=== PATIENT | female | born 1995 | race African-American/Black ===

== ENCOUNTER 2021-02-22 07:42 | Emergency (ER) | payer OTHER, SELFPAY ==
[2021-02-22 07:55] VITALS: BP 119/65; PULSE 63; RESP 16; TEMP 36.3; O2SAT 100
--- NOTE | 2021-02-22 08:00 | DI.CT_ITS ---
EXAM: CT HEAD WO CLINICAL HISTORY: Headache. TECHNIQUE: Imaging Protocol: Axial computed tomography images with coronal and sagittal reformatted images were created and reviewed COMPARISON: No exams were available for comparison FINDINGS: The ventricular system is normal in appearance. No evidence of acute intracranial hemorrhage, mass effect, or midline shift. The orbital structures are unremarkable. The temporal bone structures appear intact. Calvarium: Normal. Visualized Paranasal sinuses/Mastoids: Clear. IMPRESSION: Normal cranial CT. RADIATION DOSE DELIVERED: 806.35mGy.cm Total DLP 806.35mGy.cm Total DLP DATA REPOSITORY: All CT scans at this facility are submitted to the National Radiology Data Registry (NRDR) Dose Index Registry (DIR) with the [employer] ([employer]). RADIATION OPTIMIZATION: All CT scans at this facility use at least one of these dose optimization te chniques: automated exposure control; mA and/or kV adjustment per patient size (includes targeted exa ms where dose is matched to clinical indication); or iterative reconstruction.
--- NOTE | 2021-02-22 08:17 | W.ED.GENAD ---
Discharge Plan Disposition Patient Disposition: HOME Condition: Improving Discharge Details Clinical Impression: Headache, Anemia Primary Care Provider: None,None ED Provider: Charisma Serrano Home Meds and New Rx's Prescriptions: No Action No Known Home Meds RF: 0 Discharge Instructions Instructions: Anemia (ED), General Headache (ED) Additional Instructions: Follow up with primary care provider in 3-5 days. Return to ED sooner if any worsening pain not relieved by medications or concerns. Increase oral fluids. Please take Tylenol or Ibuprofen with food every 4-6 hours as needed for pain and swelling. Consider taking a iron supplement which you can get [id number]. You are placed on care management list to help establish primary care provider. Stand Alone Forms: Work Release Referrals: Tiffanie Liu MD [ [facility] STAFF PHYSICIAN] - 1 week (Headaches) Discharge Data Discharge Date/Time-TO BE ENTERED AT DEPARTURE: 02/22/21 10:14 Medical Decision Making 26-year-old female presents the ER with chief complaint of headache which has been ongoing for months. She reports worsening over the last few days. She describes a frontal stinging, throbbing type headache which radiates into the occipital head. Right now she reports 9 out of 10 pain. She reports that when the pain gets really bad that she does have some blurry vision. She denies any neck pain no recent trauma, no nausea vomiting diarrhea. She denies any fever or chills. She denies any ringing in her ears. She does endorse some sensitivity to light. She has been taking ibuprofen at home with little to no relief. Last normal menstrual period February 14 she is not on any form of control. She is a non-smoker denies any drugs or alcohol. Only past medical history is anemia. Due to the length of headaches and report of no previous evaluation we will do some baseline labs, urine , CT head without contrast. Visual acuity was done by staff nuclear medicine technologist and is Corrected OU 20/25 OD20/20 Both 20/20. ad radiology report Imaging protocol: Computed tomography of the head without contrast. COMPARISON: No relevant prior studies available. FINDINGS: Brain: Normal. No hemorrhage. Unremarkable white matter. No mass effect. Cerebral ventricles: No ventriculomegaly. Bones/joints: Unremarkable. No acute fracture. Paranasal sinuses: Visualized sinuses are unremarkable. No fluid levels. Mastoid air cells: Visualized mastoid air cells are well aerated. Soft tissues: Unremarkable. IMPRESSION: No acute intracranial abnormality. Thank you for allowing us to participate in the care of your patient. Dictated and Authenticated by: Yvrose Martinez MD CBC shows anemia, hemoglobin 8.3, hematocrit 28.6 MCH 26 RDW 17.4 platelets are 429. CMP largely within normal limits. Urinalysis shows trace leukocytes, 20-50 WBCs urine sample is contaminated, culture not indicated at this time. Many epithelial cells. Patient has no complaints of dysuria or symptoms of UTI. Patient does have a history of anemia. As noted above in the radiology report no acute intracranial abnormality. There is what I presume is a calcification noted in the frontal lobe which was not mentioned in the report. I will refer patient to neurology regarding her headaches and place patient on care management list for establishment with PCP regarding her anemia. I did discuss CT and lab results with the patient who verbalizes understanding. HPI General Mode of arrival: ambulatory. Date/Time Provider Initiated Documentation: 02/22/21 07:57. Limitations to Documentation: no limitations. Information obtained by: patient. HPI Narrative: 26-year-old female presents the ER with chief complaint of headache which has been ongoing for months. She reports worsening over the last few days. She describes a frontal stinging, throbbing type headache which radiates into the occipital head. Right now she reports 9 out of 10 pain. She reports that when the pain gets really bad that she does have some blurry vision. She denies any neck pain no recent trauma, no nausea vomiting diarrhea. She denies any fever or chills. She denies any ringing in her ears. She does endorse some sensitivity to light. She has been taking ibuprofen at home with little to no relief. Last normal menstrual period February 14 she is not on any form of control. She is a non-smoker denies any drugs or alcohol. Only past medical history is anemia. Related Data Home Medications Medication Instructions Recorded Confirmed Unknown [No Known Home Meds] 02/22/21 02/22/21 Allergies Allergy/AdvReac Type Severity Reaction Status Date / Time No Known Allergies Allergy Unverified 02/22/21 07:59 General Stated Complaint: Headache BOOGIE: 3 Review of Systems Narrative: Constitutional: Negative for weight loss, alert and oriented, well groomed, normal body habitus, appears comfortable. HEENT: Denies trauma, nasal discharge, sore throat, trouble swallowing. Reports frontal headache which radiates into the back describes as stinging and throbbing. Reports some blurry vision when pain gets really bad. Chest: Denies chest pain, palpitations, irregular rhythm, hypertension. Respiratory: Denies Shortness of breath, cough, hemoptysis. GI: Denies abdominal pain, nausea, vomiting, diarrhea, constipation. : Denies dysuria, hematuria, flank pain, rectal bleeding. Neuro: Denies dizziness, weakness, syncope, or facial numbness. Hematologic: Denies easy bruising, intolerance to heat or cold, hair loss. ON LICENSE OF [facility] Social History Smoking/Tobacco Use Status: Never Smoking risk assessment performed?: Yes Alcohol Intake: never Substance use type: does not use Exam Narrative Exam Narrative: Constitutional: Alert and oriented x3. Appears stated age. Well-nourished body habitus. Head: Normocephalic, no signs of trauma. Eyes: Pupils PERRLA, Red reflex noted, EOM's intact, no nystagmus. Eyelids symmetrical without lesions, discharge, or swelling. ENT: Bilateral TM's WNL, External ear normal to inspection, no mastoid TTP, swelling, or erythema, Nasal turbinates WNL, no nasal discharge. Normal dentition, Posterior pharynx WNL, no exudate. Chest: RRR, Normal S1, S2, distal pulses intact. Resp: Lungs clear to auscultation bilaterally, no wheezes, rales, or rhonchi. Musculoskeletal: Normal gait, 5/5 strength to all four extremities. Skin: No suspicious rashes or lesions. Capillary refill less than 2 sec. Neurologic: Cranial nerves II-XII intact. Alert and oriented x 3. No facial droop, chip person equal and 5+ bilaterally. Hematologic/Lymphatic: No ecchymosis, no lymphadenopathy. Course Vital Signs Vital signs: Vital Signs Temperature 36.3 C L 02/22/21 07:55 Pulse 63 02/22/21 07:55 Respiratory Rate 16 02/22/21 07:55 Blood Pressure 119/65 02/22/21 07:55 Pulse Oximetry 100 02/22/21 07:55 Temperature 36.3 C L 02/22/21 07:55 Temperature Source Skin 02/22/21 07:55 Pulse 63 02/22/21 07:55 Respiratory Rate 16 02/22/21 07:55 Respiratory Effort Non-Labored 02/22/21 07:55 Blood Pressure 119/65 02/22/21 07:55 Blood Pressure Position Sitting 02/22/21 07:55 Pulse Oximetry 100 02/22/21 07:55 Oxygen Delivery Method Room Air 02/22/21 07:55 Oxygen Flow Rate 0 02/22/21 07:55 Pain Level 9 02/22/21 07:59
[2021-02-22] MEDS: Normal Saline 1,000 ML 1000 ML IV (08:25)
[2021-02-22 08:35] LABS: Abs Immature Grans 0.02 10^3/uL (0.0-0.06); Absolute Basophil Count 0.04 10^3/uL (0.0-0.2); Absolute Eosinophil Count 0.05 10^3/uL (0.0-0.7); Absolute Lymphocyte Count 2.35 10^3/uL (1.2-3.4); Absolute Monocyte Count 0.48 10^3/uL (0.1-0.8); Absolute Neutrophil Count 3.69 10^3/uL (1.2-6.7); Basophils % 0.6; Eosinophils % 0.8; HCT 28.6 % (36.0-46.0); HGB 8.3 g/dL (11.2-15.7); Immature Grans % 0.3; Lymphocytes % 35.4; MCH 23.6 pg (27.0-33.0); MCV 81.5 fL (80-95); MPV 8.9 fL (8.0-11.0); Monocytes % 7.2; Neutrophils % 55.7; Nucleated RBC 0 %; Platelet Count 429 10^3/uL (130-400); RBC 3.51 10^6/uL (3.93-5.22); RDW 17.4 % (11.7-14.6); RDW-SD 51.1 fL; WBC 6.63 10^3/uL (4.4-10.8)
[2021-02-22] MEDS: Ondansetron 4 MG/2 ML VIAL IVP (08:35)
[2021-02-22 08:41] LABS: Bilirubin Negative (Negative); Blood Negative (Negative); Clarity Sl Cloudy (Clear); Glucose Negative (Negative); Ketones Negative (Negative); Leukocyte Esterase Trace (Negative); Nitrite Negative (Negative); Specific Gravity >= 1.030 (1.005-1.025); pH 5.5 (5-8)
[2021-02-22] MEDS: diphenhydrAMINE 50 MG/ML VIAL 25 MG IVP (08:45)
[2021-02-22 08:46] LABS: ALT 24 U/L (14-59); AST 13 U/L (15-37); Albumin 3.6 g/dL (3.4-5.0); Alkaline Phosphatase 71 U/L (46-116); Anion Gap 8.2 mmol/L (3-11); BUN 11 mg/dL (7-18); Bilirubin, Total 0.3 mg/dL (0.2-1.0); CO2 27.8 mmol/L (21.0-32.0); CREATININE 0.6 mg/dL (0.55-1.02); Calcium 8.7 mg/dL (8.5-10.1); Chloride 104 mmol/L (98-107); Glucose 99 mg/dL (74-106); Potassium 3.7 mmol/L (3.5-5.1); Sodium 140 mmol/L (136-145); Total Protein 7.9 g/dL (6.4-8.2)
[2021-02-22 08:53] LABS: Bacteria Moderate HPF (Negative); C & S Indicated? No/Sq. Contamination; Casts Negative LPF (Negative); Crystals Negative HPF (Negative); Epithelial Cells Many HPF (Negative); Mucus Trace (Negative); WBC 20-50 HPF (0-5)
--- NOTE | 2021-02-22 09:21 | DI.VRAD_ITS ---
PROCEDURE INFORMATION: Exam: CT Head Without Contrast Exam date and time: 02/22/2021 8:11 AM Age: 26 years old Clinical indication: Pain; Headache TECHNIQUE: Imaging protocol: Computed tomography of the head without contrast. COMPARISON: No relevant prior studies available. FINDINGS: Brain: Normal. No hemorrhage. Unremarkable white matter. No mass effect. Cerebral ventricles: No ventriculomegaly. Bones/joints: Unremarkable. No acute fracture. Paranasal sinuses: Visualized sinuses are unremarkable. No fluid levels. Mastoid air cells: Visualized mastoid air cells are well aerated. Soft tissues: Unremarkable. IMPRESSION: No acute intracranial abnormality. Dictated and Authenticated by: Yvrose Martinez MD. Ordering:ULISES Zafar MD
--- NOTE | 2021-02-22 09:42 | NUR.NOTE ---
Nursing Note: Referral faxed to [facility] for headache follow up within 1 - 2 wks. Referral given to Care Management for anemia/establish care with PCP within 2 weeks. Elma Field
[2021-02-22] MEDS: Ketorolac 15 MG/ML VIAL IVP (09:43)
[2021-02-22 09:54] VITALS: BP 98/47; PULSE 57; RESP 16; TEMP 36.3; O2SAT 100
[2021-02-22 10:12] VITALS: BP 98/47; PULSE 57; RESP 16; TEMP 36.3; O2SAT 100
== END 2021-02-22 10:14 | disposition home or self-care (01) ==
PROVIDERS: Emergency Provider Registered Nurse Emergency
DX: R51.9 Headache, unspecified (principal); D64.9 Anemia, unspecified
CPT/HCPCS: 80053; 81025; 96361; 96374; 96375; 99284; 70450; 81003; 81015; 85025; J1200; J1885; J2405

== ENCOUNTER 2021-03-17 07:07 | Emergency (ER) | payer OTHER, SELFPAY ==
[2021-03-17] VITALS (39 sets, daily range): BP systolic 104–135; BP diastolic 46–82; PULSE 48–84; RESP 12–23; TEMP 36.6; O2SAT 98–100
--- NOTE | 2021-03-17 07:00 | RT.EKG_ITS ---
APPROVED REPORT Exam: Resting ECG Reason for Exam: anxiety Patient Location: E HR:58 bpm ECG Measurements Heart Rate 58 AXIS PA 135 P 29 QRSd 88 QRS 27 QT 401 T 7 QTc 395 Conclusion Slow sinus arrhythmia...V-rate 50- 77, mean< 60 Nonspecific T abnormalities, anterior leads...T <-0.10mV, V2-V4 Physician: Rate 58, sinus rhythm, intervals unremarkable, inverted T waves in V1 and V2, and lead III. No STEMI . No prior EKG for comparison.
--- NOTE | 2021-03-17 07:19 | ED.GENADUL_ITS ---
Discharge Plan Disposition Patient Disposition: HOME Condition: Stable Discharge Details Clinical Impression: Chest pain, Anemia Primary Care Provider: None,None ED Provider: Sarai Ruggiero Home Meds and New Rx's Prescriptions: Continued acetaminophen [Tylenol Extra Strength] 500 mg tablet 500 mg PO Q6H PRNRF: 0 ibuprofen 200 mg tablet 400 mg PO Q6H PRNRF: 0 prochlorperazine maleate 5 mg tablet See Rx Instructions PO TID PRN (Reason: headaches ) Qty: 30 RF: 3 Discharge Instructions Instructions: Chest Pain (ED), Anemia (ED), Anxiety (ED) Additional Instructions: Please return immediately to the emergency department if you develop any new or worsening symptoms, if your condition does not improve as expected, or if you become otherwise concerned. It is extremely important that you call soon as possible to make an appointment to be seen in follow-up for this visit by your primary care doctor. Medical Decision Making <Nick Quiñonez, - Last Filed: 03/17/21 07:26> This is a 26-year-old -Citizen Of [place] female with a past medical history of mild anemia, and panic attacks who presents today for evaluation of anxiety. Patient states that she has a long history of panic attacks, and this morning she feels she is having a mild panic attack. Patient states that yesterday while she was driving to work she had a panic-like sensation, chest pressure and tightness, some mild shortness of breath. She has been trying to work through it but feels that the symptoms have been becoming too notable to control on her own. She states that 4 days ago she did break-up with her significant other. She has not seen her family in [place] for quite some time. She denies any IV or illicit drug use, history of blood clots, long trips, surgeries, or procedures. She does not have medications to help manage this in general. Of note she does have a history of headaches for which she was seen by Dr. Deng just last month, and her CT scan of her head was negative at that time. Physical exam is unremarkable and very reassuring. Vital signs are stable. She has no family history of young cardiac disease. Differential is highest for anxiety, however I feel there is also component of mild depression. She has no homicidal or suicidal ideations. Did ask her if she would like to speak with a counselor, and she was very agreeable to this. She does not look overly panicked at this time, I do feel that a very small dose of Ativan may be helpful, but she does not need large dose anxiolytics at this time. With the patient's chest pain shortness of breath though I do feel that further invest igation for potential blood clot and cardiac abnormalities is warranted. We will do a single troponin, get an EKG, get a D-dimer, gently rehydrate monitor closely and reassess. We will contact mental health to visit the patient to help set up outpatient management/counseling. EKG 7: 18 Rate 58, sinus rhythm, intervals unremarkable, inverted T waves in V1 and V2, and lead III. No STEMI. No prior EKG for comparison. <Sarai Ruggiero MD - Last Filed: 03/17/21 11:18> Parul Renee is a 26-year-old woman with history of anemia signed out to me at time of shift change by Dr. Quiñonez with D-dimer, imaging, reassessment pending. D-dimer resulted as negative, chest x-ray obtained and negative. Patient reports to me that she had episode of anxiety and chest tightness while driving to work both yesterday morning and this morning. Denies exertional symptoms. Patient reports that she feels significantly improved at this time, has no chest tightness/chest pain or other symptoms currently. Plan for repeat troponin, repeat EKG. Patient states that she does not have a PE in this area, will place patient on care management with established PCP. Patient has not received the Covid vaccination. Pt offered [employer] vaccine, which she declines at this time. Repeat troponin negative. Repeat EKG unchanged from initial. Patient denies any current symptoms, states that she feels much better than she did upon arrival. Plan for outpatient follow-up with PCP, care management to assist. I had a lengthy discussion with Patient regarding return to emergency department precautions, home care, and importance of outpatient follow-up. Pt verbalizes understanding of the plan and is amenable. Patient discharged to home with clear plan for outpatient follow-up. All questions were answered. Disposition decision was made weighing the risks and benefits of hospitalization versus outpatient treatment, the risk for further decompensation, and the patient's wishes. Medical Records Medical records reviewed: Yes I reviewed the patient's medical records. Imaging Data Radiologic Study: Attestation: I personally reviewed and interpreted this imaging study as follows: Radiologist's impression: EXAM: XR CHEST 2V PA LATERAL CLINICAL HISTORY: chest pain. TECHNIQUE: 2D digital imaging was performed. COMPARISON: No exams were available for comparison FINDINGS: Heart size is normal. The mediastinum is not widened. Lungs are clear. No infiltrates nor pleural effusions. IMPRESSION: No acute pulmonary findings. Lab Data Lab results reviewed: Yes I reviewed the patient's lab results. Labs: Laboratory Tests Range/Units 03/17/21 03/17/21 03/17/21 07:30 07:30 07:30 WBC (4.4-10.8) 10^3/uL 6.67 RBC (3.93-5.22) 10^6/uL 3.57 L Hgb (11.2-15.7) g/dL 8.4 L Hct (36.0-46.0) % 28.9 L MCV (80-95) fL 81.0 MCH (27.0-33.0) pg 23.5 L MCHC (32.0-36.0) % 29.1 L RDW (11.7-14.6) % 17.4 H Plt Count (130-400) 10^3/uL 430 H MPV (8.0-11.0) fL 9.0 Immature Gran % 0.1 Neutrophils % 53.3 Lymphocytes % 37.0 Monocytes % 8.5 Eosinophils % 0.7 Basophils % 0.4 Nucleated RBC % % 0 Absolute Neutrophils (1.2-6.7) 10^3/uL 3.54 Absolute Lymphocytes (1.2-3.4) 10^3/uL 2.47 Absolute Monocytes (0.1-0.8) 10^3/uL 0.57 Absolute Eosinophils (0.0-0.7) 10^3/uL 0.05 Absolute Basophils (0.0-0.2) 10^3/uL 0.03 D-Dimer (<500) ng/mlFEU 206 Sodium (136-145) mmol/L 140 Potassium (3.5-5.1) mmol/L 3.8 Chloride (98-107) mmol/L 103 Carbon Dioxide (21.0-32.0) mmol/L 30.4 Anion Gap (3-11) mmol/L 6.6 BUN (7-18) mg/dL 8 Creatinine (0.55-1.02) mg/dL 0.7 Estimated GFR/1.73 m2 (mL/min/1.73m2) >= 60.00 Glucose (74-106) mg/dL 110 H Calcium (8.5-10.1) mg/dL 8.9 Total Bilirubin (0.2-1.0) mg/dL 0.3 AST (15-37) U/L 21 ALT (14-59) U/L 25 Alkaline Phosphatase (46-116) U/L 75 Troponin I (<0.06) ng/mL < 0.05 Total Protein (6.4-8.2) g/dL 8.0 Albumin (3.4-5.0) g/dL 3.5 Urine Opiates Screen (Negative) Urine Methadone Screen (Negative) Ur Barbiturates Screen (Negative) Ur Tricyclics Screen (Negative) Ur Amphetamines Screen (Negative) U Benzodiazepines Scrn (Negative) Urine Cocaine Screen (Negative) Ur THC Screen (Negative) Range/Units 03/17/21 03/17/21 07:47 10:16 WBC (4.4-10.8) 10^3/uL RBC (3.93-5.22) 10^6/uL Hgb (11.2-15.7) g/dL Hct (36.0-46.0) % MCV (80-95) fL MCH (27.0-33.0) pg MCHC (32.0-36.0) % RDW (11.7-14.6) % Plt Count (130-400) 10^3/uL MPV (8.0-11.0) fL Immature Gran % Neutrophils % Lymphocytes % Monocytes % Eosinophils % Basophils % Nucleated RBC % % Absolute Neutrophils (1.2-6.7) 10^3/uL Absolute Lymphocytes (1.2-3.4) 10^3/uL Absolute Monocytes (0.1-0.8) 10^3/uL Absolute Eosinophils (0.0-0.7) 10^3/uL Absolute Basophils (0.0-0.2) 10^3/uL D-Dimer (<500) ng/mlFEU Sodium (136-145) mmol/L Potassium (3.5-5.1) mmol/L Chloride (98-107) mmol/L Carbon Dioxide (21.0-32.0) mmol/L Anion Gap (3-11) mmol/L BUN (7-18) mg/dL Creatinine (0.55-1.02) mg/dL Estimated GFR/1.73 m2 (mL/min/1.73m2) Glucose (74-106) mg/dL Calcium (8.5-10.1) mg/dL Total Bilirubin (0.2-1.0) mg/dL AST (15-37) U/L ALT (14-59) U/L Alkaline Phosphatase (46-116) U/L Troponin I (<0.06) ng/mL < 0.05 Total Protein (6.4-8.2) g/dL Albumin (3.4-5.0) g/dL Urine Opiates Screen (Negative) Negative Urine Methadone Screen (Negative) Negative Ur Barbiturates Screen (Negative) Negative Ur Tricyclics Screen (Negative) Negative Ur Amphetamines Screen (Negative) Negative U Benzodiazepines Scrn (Negative) Negative Urine Cocaine Screen (Negative) Negative Ur THC Screen (Negative) Negative ECG Data Attestation: I personally reviewed and interpreted this ECG (s) as follows: Interpretation: Repeat EKG shows sinus bradycardia at 51, normal axis, T wave inversions V1 and V2, lead III as seen on prior earlier today, no STEMI, no major change from prior, nondiagnostic EKG HPI <Nick Quiñonez DO - Last Filed: 03/17/21 07:26> General Date/Time Provider Initiated Documentation: 03/17/21 07:09 . HPI Narrative: This is a 26-year-old -Citizen Of [place] female with a past medical history of mild anemia, and panic attacks who presents today for evaluation of anxiety. Patient states that she has a long history of panic attacks, and this morning she feels she is having a mild panic attack. Patient states that yesterday while she was driving to work she had a panic-like sensation, chest pressure and tightness, some mild shortness of breath. She has been trying to work through it but feels that the symptoms have been becoming too notable to control on her own. She states that 4 days ago she did break-up with her significant other. She has not seen her family in [place] for quite some time. She denies any IV or illicit drug use, history of blood clots, long trips, surgeries, or procedures. She does not have medications to help manage this in general. Of note she does have a history of headaches for which she was seen by Dr. Deng just last month, and her CT scan of her head was negative at that time. Related Data Home Medications Medication Instructions Recorded Confirmed acetaminophen 500 mg tablet 500 mg PO Q6H PRN 03/05/21 03/17/21 ibuprofen 200 mg tablet 400 mg PO Q6H PRN tab 03/05/21 03/17/21 prochlorperazine maleate 5 mg See Rx Instructions PO TID PRN #30 03/05/21 03/17/21 tablet tab Previous Rx's Medication Instructions Recorded prochlorperazine maleate 5 mg See Rx Instructions PO TID PRN #30 03/05/21 tablet tab Allergies Allergy/AdvReac Type Severity Reaction Status Date / Time No Known Allergies Allergy Unverified 03/17/21 07:23 General BOOGIE: 3 Review of Systems <Nick Quiñonez DO - Last Filed: 03/17/21 07:26> All systems reviewed & are unremarkable except as noted in HPI and below PFSH <Nick Quiñonez DO - Last Filed: 03/17/21 07:26> Medical History Anemia Social History Smoking/Tobacco Use Status: Never Smoking risk assessment performed?: Yes Alcohol Intake: never Substance use type: does not use Household members: spouse Housing: apartment What is your relationship status?: Panel score (0-1 are the most socially isolated patients): 1 What type of physical activity do you participate in: regular exercise Seatbelt use: always Do you feel safe at home: Yes Do you feel safe in your relationship?: Yes Exam <Nick Quiñonez DO - Last Filed: 03/17/21 07:26> Narrative Exam Narrative: 1.Const: Well-nourished, Well-developed, appearing stated age 2.Eyes: PERRL, no conjunctival injection, and symmetrical lids. 3.ENT: Atraumatic external nose and ears. Moist MM. Neck: Symmetric, trachea midline, No thyromegaly. 4.CVS: +S1/S2, No murmurs or gallops. Peripheral pulses 2+ and equal in all extremities. Brisk capillary refill in all extremities. 5.RESP: Unlabored respiratory effort. Clear to auscultation bilaterally. No wheezes rales or rhonchi 6.GI: Soft, Nontender/Nondistended, No hepatosplenomegaly. No guarding or rebound. 7.MSK: Normocephalic/Atraumatic, Extremities w/o deformity or ttp No cyanosis or clubbing, Normal movement of all extremities. Trace pitting edema in the lower extremities bilaterally. No unilateral swelling. No calf tenderness. 8.Skin: Warm, Dry. No rashes or lesions. 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 Sensation grossly intact, no focal neurologic deficits. 10.Psych: (AAO) x3. Appropriate mood and affect Sign Out <Nick Quiñonez DO - Last Filed: 03/17/21 07:26> Sign Out Data: Sign Out Comment: Patient reports anxiety and panic-like sensation over the last 2 days. Could do cardiac work-up and D-dimer small doses 0.5 mg Ativan. Determine imaging after dimer returns. Last updated by Nick Quiñonez DO at 03/17/21 07:27
[2021-03-17] MEDS: Normal Saline 1,000 ML 1000 ML IV (07:37)
--- NOTE | 2021-03-17 07:39 | NUR.NOTE ---
Nursing Note: Referral to establish care with a PCP in 1 to 2 weeks for anxiety given to Care Management. Elma Field
[2021-03-17 07:42] LABS: Abs Immature Grans 0.01 10^3/uL (0.0-0.06); Absolute Basophil Count 0.03 10^3/uL (0.0-0.2); Absolute Eosinophil Count 0.05 10^3/uL (0.0-0.7); Absolute Lymphocyte Count 2.47 10^3/uL (1.2-3.4); Absolute Monocyte Count 0.57 10^3/uL (0.1-0.8); Absolute Neutrophil Count 3.54 10^3/uL (1.2-6.7); Basophils % 0.4; Eosinophils % 0.7; HCT 28.9 % (36.0-46.0); HGB 8.4 g/dL (11.2-15.7); Immature Grans % 0.1; MCH 23.5 pg (27.0-33.0); MCHC 29.1 % (32.0-36.0); Monocytes % 8.5; Neutrophils % 53.3; Nucleated RBC 0 %; Platelet Count 430 10^3/uL (130-400); RBC 3.57 10^6/uL (3.93-5.22); RDW 17.4 % (11.7-14.6); RDW-SD 51.5 fL; WBC 6.67 10^3/uL (4.4-10.8)
[2021-03-17] MEDS: LORazepam 2 MG/ML VIAL 0.5 MG IVP (07:50)
--- NOTE | 2021-03-17 07:56 | NUR.NOTE ---
Nursing Note: DOYLE Slade is speaking with the patient. Elma Field
[2021-03-17 07:59] LABS: ALT 25 U/L (14-59); AST 21 U/L (15-37); Albumin 3.5 g/dL (3.4-5.0); Alkaline Phosphatase 75 U/L (46-116); Anion Gap 6.6 mmol/L (3-11); BUN 8 mg/dL (7-18); Bilirubin, Total 0.3 mg/dL (0.2-1.0); CO2 30.4 mmol/L (21.0-32.0); CREATININE 0.7 mg/dL (0.55-1.02); Calcium 8.9 mg/dL (8.5-10.1); Chloride 103 mmol/L (98-107); Glucose 110 mg/dL (74-106); Potassium 3.8 mmol/L (3.5-5.1); Sodium 140 mmol/L (136-145)
[2021-03-17 08:01] LABS: Troponin I < 0.05 ng/mL (<0.06)
[2021-03-17 08:14] LABS: *AMPHETAMINES SCREEN URINE Negative (Negative); *BARBITURATES SCREEN URINE Negative (Negative); *BENZODIAZEPINES SCREEN URINE Negative (Negative); Cannabinoids THC Negative (Negative); Cocaine Screen,Urine Negative (Negative); METHADONE URINE SCREEN Negative (Negative); OPIATES URINE SCREEN Negative (Negative)
[2021-03-17 08:18] LABS: Tricyclic Antidepressants Negative (Negative)
[2021-03-17 09:00] LABS: D-Dimer 206 ng/mlFEU (<500)
--- NOTE | 2021-03-17 09:00 | DI.RAD_ITS ---
Exam(s) XR CHEST 2V PA LATERAL EXAM: XR CHEST 2V PA LATERAL CLINICAL HISTORY: chest pain. TECHNIQUE: 2D digital imaging was performed. COMPARISON: No exams were available for comparison FINDINGS: Heart size is normal. The mediastinum is not widened. Lungs are clear. No infiltrates nor pleural effusions. IMPRESSION: No acute pulmonary findings. DATA REPOSITORY: RADIATION DOSE DELIVERED:
--- NOTE | 2021-03-17 10:00 | RT.EKG_ITS ---
APPROVED REPORT Exam: Resting ECG Reason for Exam: chest pain Patient Location: E HR:51 bpm ECG Measurements Heart Rate 51 AXIS ME 141 P 14 QRSd 88 QRS 24 QT 414 T 8 QTc 382 Conclusion Sinus bradycardia...rate< 60 sinus bradycardia at 51, normal axis, T wave inversions V1 and V2, lead III as seen on prior earlier today, no STEMI, no major change from prior, nondiagnostic EKG
[2021-03-17 10:50] LABS: Troponin I < 0.05 ng/mL (<0.06)
--- NOTE | 2021-03-18 11:17 | PDOC.ERCMPRO ---
Care Management Progress Note CM faxed referral to [facility] for PCP attachment per tele-doc protocol assignment, as requested.
== END 2021-03-17 11:27 | disposition home or self-care (01) ==
PROVIDERS: Student in an Organized Health Care Education/Training Program; Emergency Provider Student in an Organized Health Care Education/Training Program
DX: R07.9 Chest pain, unspecified (principal); D64.9 Anemia, unspecified; F41.9 Anxiety disorder, unspecified
CPT/HCPCS: 80053; 80307; 93005; 96361; 96374; 99284; 71046; 84484; 85025; 85379; 93010; 99283; J2060

== ENCOUNTER 2021-03-31 15:32 | Emergency (ER) | payer OTHER, SELFPAY ==
--- NOTE | 2021-03-31 15:30 | DI.US_ITS ---
Exam(s) US LOWER EXTREMITY VENOUS RT EXAM: US LOWER EXTREMITY VENOUS RT CLINICAL HISTORY: RLE pain TECHNIQUE: Grayscale, color, and doppler imaging of the deep venous system of the right lower extrem ity was performed. COMPARISON: No exams were available for comparison FINDINGS: There is no evidence of intraluminal thrombus and there is normal compression and augmentation demons trated within the common femoral vein, femoral vein, and popliteal vein. In the ipsilateral calf the interrogated veins also exhibit normal compression/ augmentation properti es. The ipsilateral saphenofemoral junction is patent. IMPRESSION: 1. No evidence of DVT in the right lower extremity. 2. DATA REPOSITORY:
[2021-03-31 15:36] VITALS: BP 114/64; RESP 18; TEMP 36.5; O2SAT 100
--- NOTE | 2021-03-31 15:48 | W.ED.GENAD ---
Discharge Plan Disposition Patient Disposition: HOME Condition: Stable Discharge Details Clinical Impression: Strain of right calf muscle, Right foot strain Primary Care Provider: None,None ED Provider: Flo Vance Home Meds and New Rx's Prescriptions: Continued acetaminophen [Tylenol Extra Strength] 500 mg tablet 500 mg PO Q6H PRNRF: 0 ibuprofen 200 mg tablet 400 mg PO Q6H PRNRF: 0 prochlorperazine maleate 5 mg tablet See Rx Instructions PO TID PRN (Reason: headaches ) Qty: 30 RF: 3 Discharge Instructions Instructions: Muscle Strain (ED) Additional Instructions: Home to rest today. Wear walking ankle shoe for 2 to 7 days as needed. Then transition to a hard soled shoe such as a dance go clogs. Apply ice to area to reduce pain and swelling. Elevate above the level of the heart to reduce pain and swelling. Your ultrasound today did not show evidence of mass or blood clot. Medical Decision Making 26-year-old female who works as an L[employer]. Presents with 2 days of right medial calf and foot pain that seems to be worse at the end of the day. Trace swelling. There is approximately half centimeter difference in circumference right greater than left on my exam and tenderness along the right medial gastrocnemius, soleus, distal right lower extremity. No cords or masses appreciated. No rash. Differential diagnosis includes muscular strain versus DVT. Patient referred for right lower extremity ultrasound which does not reveal any acute findings. Consistent with muscular strain. Patient worried for some discomfort on the lateral foot, and discussed with her immobilization using ankle walker and transitioning to a hard soled clog-like shoe. She is stable for discharge with outpatient management at this time and understands indications to seek reevaluation. HPI General Mode of arrival: ambulatory. Date/Time Provider Initiated Documentation: 03/31/21 15:33. Limitations to Documentation: no limitations. Information obtained by: patient. History of Present Illness 26 year old F presents to the emergency department with the chief complaint of Right calf pain for 2 days, described as moderate, Quality is described as dull and constant, and is localized to the right and lower extremity. Patient started experiencing this day(s) and it has been intermittent. No relieving factors improve symptom(s), Movement worsens symptoms . Patient notes denies fever/chills and rash. Patient did receive the following treatments prior to arrival, none Related Data Home Medications Medication Instructions Recorded Confirmed acetaminophen 500 mg tablet 500 mg PO Q6H PRN 03/05/21 03/31/21 ibuprofen 200 mg tablet 400 mg PO Q6H PRN tab 03/05/21 03/31/21 prochlorperazine maleate 5 mg See Rx Instructions PO TID PRN #30 03/05/21 03/31/21 tablet tab Previous Rx's Medication Instructions Recorded prochlorperazine maleate 5 mg See Rx Instructions PO TID PRN #30 03/05/21 tablet tab Allergies Allergy/AdvReac Type Severity Reaction Status Date / Time No Known Allergies Allergy Unverified 03/31/21 15:40 General Stated Complaint: Vascular BOOGIE: 4 Review of Systems Narrative: Not . No chest pain or shortness of breath. No direct fall or injury. No rash. 6 systems reviewed and otherwise negative [facility] Medical History Anemia Social History Smoking/Tobacco Use Status: Never Smoking risk assessment performed?: Yes Alcohol Intake: never Substance use type: does not use Household members: spouse Housing: apartment What is your relationship status?: Panel score (0-1 are the most socially isolated patients): 1 What type of physical activity do you participate in: regular exercise Seatbelt use: always Do you feel safe at home: Yes Do you feel safe in your relationship?: Yes Exam Narrative Exam Narrative: GEN: awake, alert, oriented 3. Pleasant, well groomed, interactive. HEAD: Normocephalic, atraumatic ENT: Mucous membranes moist, External ear exam unremarkable EYES: PERRL, EOMI NECK: Full ROM, no ERIC, no menigismus CHEST/RESP: No respiratory distress EXT: Full ROM, trace pedal edema bilaterally although quite subtle. Palpable DP bilaterally. Right medial gastroc and soleus tender to palpation. No cords or masses appreciated. Neuro: Grossly normal neurologic exam, conversant, interactive. Psych: Speech fluent, thoughts congruent, affect normal Course Vital Signs Vital signs: Vital Signs Temperature 36.5 C 03/31/21 15:36 Respiratory Rate 18 03/31/21 15:36 Blood Pressure 114/64 03/31/21 15:36 Pulse Oximetry 100 03/31/21 15:36 Temperature 36.5 C 03/31/21 15:36 Temperature Source Temporal Artery Scan 03/31/21 15:36 Respiratory Rate 18 03/31/21 15:36 Blood Pressure 114/64 03/31/21 15:36 Blood Pressure Position Sitting 03/31/21 15:36 Pulse Oximetry 100 03/31/21 15:36 Oxygen Delivery Method Room Air 03/31/21 15:36 Oxygen Flow Rate 0 03/31/21 15:36 Pain Level 7 03/31/21 15:36
== END 2021-03-31 16:51 | disposition home or self-care (01) ==
PROVIDERS: Emergency Provider Emergency Medicine
DX: S86.811A Strain of other muscle(s) and tendon(s) at lower leg level, right leg, initial encounter (principal); S96.811A Strain of other specified muscles and tendons at ankle and foot level, right foot, initial encounter; X58.XXXA Exposure to other specified factors, initial encounter
CPT/HCPCS: 29515; 99284; 93971; 99283